=== PATIENT | female | born 1980 | race Two or more races ===

== ENCOUNTER 2023-04-27 18:23 | Emergency (ER) | payer BC, MEDICARE ==
[~2023-04-27] VITALS: Ht 160 cm; Wt 79.8 kg
[2023-04-27 19:16] LABS: Urine Bacteria FEW /hpf (None Seen); Urine Blood Negative /uL (Negative); Urine Specific Gravity 1.004 (1.001-1.035); Urine WBC 7 /hpf (0 - 5)
[2023-04-27] MEDS ORDERED: KETOROLAC TROMETH 60MG/2ML VIAL IM ONE (22:00)
[2023-04-27] MEDS ORDERED: CYCL-837 PO (22:08)
[2023-04-27] MEDS ORDERED: TRAM50TA2 PO (22:08)
[2023-04-27] MEDS ORDERED: CEPH500C PO (22:40)
[2023-04-27 22:45] VITALS: BP 137/73; PULSE 68; RESP 17; TEMP 97.9; O2SAT 98
== END 2023-04-27 22:45 | disposition home or self-care (01) ==
LOC: ER 18:23
DX: S76.812A Strain of other specified muscles, fascia and tendons at thigh level, left thigh, initial encounter (principal); S39.012A Strain of muscle, fascia and tendon of lower back, initial encounter; N39.0 Urinary tract infection, site not specified; Z98.890 Other specified postprocedural states; X58.XXXA Exposure to other specified factors, initial encounter; Y93.89 Activity, other specified; Y92.89 Other specified places as the place of occurrence of the external cause; Y99.8 Other external cause status; Z88.0 Allergy status to penicillin
CPT/HCPCS: 72100; 81001; 96372; 99284; J1885